=== PATIENT | male | born 1995 | race African-American/Black ===

== ENCOUNTER 2017-06-20 02:00 | Emergency (ER) | payer SELFPAY ==
--- NOTE | 2017-06-20 02:24 | EDM.PDOC ---
ED HPI GENERAL MEDICAL PROBLEM - General Chief Complaint: Upper Extremity Injury/Pain Stated Complaint: Left hand injury Time Seen by Provider: 06/20/17 02:15 Source of Information: Reports: Patient History Limitations: Reports: No Limitations - History of Present Illness INITIAL COMMENTS - FREE TEXT/NARRATIVE: Pt. states that he punched a wall with his L hand. Pt. states that he is experiencing pain to the mid portion of his 5th metacarpal of the left hand. Pt. denies injury to wrist, forearm, or elsewhere. He denies any numbness/ tingling in the fingers of the L hand. Onset: Today Onset Date: 06/20/17 Location: Reports: Upper Extremity, Left Quality: Reports: Ache Severity: Moderate Improves with: Reports: Cold Therapy Worsens with: Reports: Movement left hand Pain Score (Numeric/FACES): 7 - Related Data Allergies Allergy/AdvReac Type Severity Reaction Status Date / Time No Known Allergies Allergy Verified 06/20/17 02:12 Home Meds: Home Meds Hydrochlorothiazide 12.5 mg PO DAILY #30 cap 07/13/16 [Rx] amLODIPine [Norvasc] 10 mg PO DAILY #30 tablet 07/13/16 [Rx] Past Medical History - Past Health History Medical/Surgical History: Denies Medical/Surgical History Cardiovascular History: Reports: Hypertension - Past Surgical History HEENT Surgical History: Reports: Tonsillectomy Social & Family History - Family History Family Medical History: Noncontributory - Tobacco Use Smoking Status *Q: Never Smoker - Caffeine Use Caffeine Use: Reports: None - Alcohol Use Days Per Week of Alcohol Use: 2 Number of Drinks Per Day: 0 Total Drinks Per Week: 0 - Recreational Drug Use Recreational Drug Use: No Review of Systems - Review of Systems Review Of Systems: See Below Constitutional: Reports: No Symptoms Eyes: Reports: No Symptoms Ears: Reports: No Symptoms Nose: Reports: No Symptoms Mouth/Throat: Reports: No Symptoms Respiratory: Reports: No Symptoms Cardiovascular: Reports: No Symptoms GI/Abdominal: Reports: No Symptoms Genitourinary: Reports: No Symptoms Musculoskeletal: Reports: Hand Pain (tenderness and hematoma noted to 5th metacarpal of L hand) Neurological: Reports: No Symptoms Psychiatric: Reports: No Symptoms ED EXAM, GENERAL - Physical Exam Exam: See Below Exam Limited By: No Limitations General Appearance: Alert Peripheral Pulses: 4+: Radial (L), Radial (R) Extremities: Normal Capillary Refill, Other (edema and tenderness noted to 5th metacarpal of L hand) Course - Vital Signs Last Recorded V/S: Last Vital Signs Temp 36.4 C 06/20/17 02:08 Pulse 66 06/20/17 02:08 Resp 16 06/20/17 02:08 BP 173/108 H 06/20/17 02:08 Pulse Ox 98 06/20/17 02:08 - Orders/Labs/Meds Orders: Active Orders 24 hr Category Date Time Status Hand Comp Min 3V Lt [CR] Stat Exams 06/20/17 02:18 Ordered Hand Comp Min 3V Lt [CR] Stat Exams 06/20/17 02:18 Taken Meds: Medications Discontinued Medications Generic Name Dose Route Start Last Admin Trade Name Tyrell PRN Reason Stop Dose Admin Acetaminophen/Codeine Phosphate 1 packet 06/20/17 03:05 06/20/17 03:12 Take Home: Acetam/Codeine 300-30 Mg, 5 Pack PO 06/20/17 03:06 1 packet ONETIME ONE Administration - Radiology Interpretation Free Text/Narrative:: moderately angulated 5th metacarpal fracture Departure - Departure Time of Disposition: 03:15 Disposition: Home, Self-Care 01 Condition: Good Clinical Impression: Fracture of metacarpal bone - Discharge Information Instructions: Metacarpal Fracture Referrals: PCP,Unobtain [Primary Care Provider] - Forms: ED Department Discharge Additional Instructions: Keep splint on all of the time. Contact [facility] on Thursday. I spoke with Dr. Wing. He wants to see you the first part of next week in clinic. Phone # is [phone] Ibuprofen 600mg every 6 hours for pain. Tylenol #3 1 tablet every 4-6 hours as needed for pain. - My Orders Last 24 Hours: My Active Orders 06/20/17 02:18 Hand Comp Min 3V Lt [CR] Stat Hand Comp Min 3V Lt [CR] Stat - Assessment/Plan Last 24 Hours: My Active Orders 06/20/17 02:18 Hand Comp Min 3V Lt [CR] Stat Hand Comp Min 3V Lt [CR] Stat Assessment:: 5th metacarpal fracture of L hand Plan: Contact [facility] Thursday. I spoke with Dr. Wing who advised follow- up next week. Tylenol #3 1 every 4-6 hours as needed for pain. Ibuprofen 600mg every 6 hours. Keep splint on.
[2017-06-20] MEDS ORDERED: Take Home: Acetaminophen/Codeine 300 MG/30 MG, 5 Tab Pack PO ONE (03:05)
[2017-06-20 03:27] VITALS: BP 166/110
== END 2017-06-20 03:20 | disposition home or self-care (01) ==
LOC: VM.ED 02:00
DX: S62.327A Displaced fracture of shaft of fifth metacarpal bone, left hand, initial encounter for closed fracture (principal); W22.01XA Walked into wall, initial encounter; I10 Essential (primary) hypertension; Z98.890 Other specified postprocedural states; Z79.899 Other long term (current) drug therapy
CPT/HCPCS: 29125; 73130; 99283; A9270; 99282-GF-25